=== PATIENT | male | born 1975 | race Caucasian/White ===

== ENCOUNTER → 2018-07-12 15:54 | Outpatient (CLI) | payer BC, SELFPAY ==
[2018-07-12 16:18] LABS: Blood Urea Nitrogen 13 mg/dL (7-18); Estimated Glomerular Filt Rate 107 ml/min (>60); GFR (African American) 129 ML/MIN (>60)
--- NOTE | 2018-07-12 16:32 | CT_ITS ---
CT abdomen pelvis w con CLINICAL INDICATION: ITS.REASON: RIGHT GROIN PAIN ORDERING PHYSICIAN: Kelton Christy MD PATIENT AGE: 42 years COMPARISON: None TECHNIQUE: Axial images obtained with sagittal and coronal reformats. All CT scans at the facility use one or more dose reduction, viz: automated exposure control, ma/kV adjustment per patient size (including targeted exams where dose is matched to indication, i.e. head), or iterative reconstruction technique. PROCEDURE: Oral Contrast: None IV Contrast: 75 mL's Optiray 350. FINDINGS: No acute finding in the lower chest. The liver, gallbladder, spleen, adrenal glands, and pancreas have an unremarkable CT appearance. No renal or ureteral calculi. No hydronephrosis. No intestinal obstruction or free air. No abdominal wall hernias are evident. No evidence of inguinal hernia. There is mild hyperdensity of the appendix suggestion of some minimal enhancement of the mid aspect of the appendix with minimal prominence of the mid aspect of the appendix at 8 mm. No central appendiceal fluid or periappendiceal stranding of the fat is evident. This is of questionable clinical significance. This may merely be due to partial volume averaging artifact from the appendix making a right ankle turn . The findings are not typical for appendicitis. Please correlate with clinical findings. No pelvic mass abnormal fluid collection or focal inflammatory change of the pelvis. No acute bony findings. There is some mild atherosclerotic calcification of the aortoiliac vessels. IMPRESSION: 1. No evidence of abdominal wall hernia or inguinal hernia. 2. Minimal prominence of the mid aspect of the appendix was some questionable enhancement. The proximal and distal aspect of the appendix has an unremarkable appearance. These findings are not typical for appendicitis. Please correlate with clinical parameters and consider follow-up imaging if clinically warranted
--- NOTE | 2018-07-12 17:19 | US_ITS ---
US scrotum HISTORY: ITS.REASON: RIGHT GROIN PAIN ORDERING PHYSICIAN: Kelton Christy MD PATIENT AGE: 42 years Comparison: None FINDINGS: The right testicle is 4.4 x 2.2 cm. Blood flow is present. No mass apparent. No evidence of hydrocele or hematocele or varicocele. The left testicle measures 4.2 x 2.2 cm. There is homogeneous echogenicity. No mass evident. There is a small left epididymal cyst at 1 cm. Blood flow is present. No hydrocele or varicocele. IMPRESSION: Small left epididymal cyst otherwise negative testicular ultrasound
== END ==
PROVIDERS: Visit Provider Internal Medicine Adolescent Medicine
DX: R10.31 Right lower quadrant pain (principal)
CPT/HCPCS: 36415; 74177; 76870; 82565; 84520; Q9967

== ENCOUNTER 2022-05-26 15:52 | Emergency (ER) | payer BC, SELFPAY ==
[2022-05-26] VITALS (7 sets, daily range): BP systolic 125–143; BP diastolic 79–89; PULSE 60–73; RESP 17–22; TEMP 36.7–36.9; O2SAT 96–100; BMI 29.0
--- NOTE | 2022-05-26 15:52 | ECG_ITS ---
APPROVED REPORT Exam: Resting ECG HR:65 bpm ECG Measurements Heart Rate 65 AXES GA 147 P 56 QRSd 93 QRS 35 QT 361 T 18 QTc 373 Conclusion SINUS RHYTHM NORMAL ECG UNCONFIRMED REPORT Electronically signed by : Isaiah Holcomb MD 05/27/2022 20:57:08
--- NOTE | 2022-05-26 15:56 | XR_ITS ---
FINAL REPORT CLINICAL HISTORY: CHEST PAIN FINDINGS: A single portable view of the chest was obtained. The heart size and pulmonary vascularity are within normal limits. The mediastinum is within normal limits. No acute pulmonary abnormality is identified. The bony thorax is intact. IMPRESSION: No active cardiopulmonary disease. Reviewed, Interpreted and Dictated by Moiz Pearson III, MD Transcribed by Germania Potts Authenticated and [facility]
[2022-05-26 16:19] LABS: Chloride 104 mmol/L (98-107); Potassium 3.6 mmoL/L (3.5-5.1); Sodium 141 mmol/L (136-145)
[2022-05-26 16:22] LABS: Blood Urea Nitrogen 23 mg/dl (9-20); Creatinine Clearance Estimated 146 mL/min (50-200); Estimated Glomerular Filt Rate 91 ml/min (>60); GFR (African American) 110 ML/MIN (>60)
[2022-05-26 16:23] LABS: Anion Gap 8.6 mEq/L (5-15); Calcium 8.7 mg/dl (8.4-10.2); Carbon Dioxide 32 mmol/L (22.0-30.0); Glucose 86 mg/dl (74-100)
[2022-05-26 16:43] LABS: Troponin I < 0.01 ng/ml (0.00-0.034)
[2022-05-26 16:56] LABS: Basophils # 0.1 K/mm3 (0-0.2); Basophils % 1.1 % (0.1-2.0); Eosinophils # 0.2 K/mm3 (0.0-0.4); Eosinophils % 2.3 % (0.1-12.0); Hemoglobin 13.4 g/dL (14.1-18.0); Lymphocytes # 3.5 K/mm3 (0.7-4.5); Lymphocytes % 38.2 % (10-50); Mean Corpuscular HGB Conc 31.9 g/dL (31.8-35.4); Mean Corpuscular Volume 93.9 fl (80-94); Mean Platelet Volume 8.1 fl (7.4-10.4); Monocytes # 0.4 K/mm3 (0.1-1.0); Monocytes % 4.5 % (1.7-9.3); Neutrophils # 4.9 K/mm3 (1.8-7.8); Neutrophils % 53.9 % (37.0-80.0); Platelet Count 355 K/mm3 (142-424); Red Blood Count 4.47 M/mm3 (4.60-6.20); White Blood Count 9.1 K/mm3 (4.8-10.8)
--- NOTE | 2022-05-26 17:37 | PC.NURSE ---
PT TO BR
--- NOTE | 2022-05-26 18:04 | HMH.EDGENADL ---
Discharge Plan Disposition Patient Disposition: Home, Self-Care Condition: Good Activity Restrictions/Add. Instructions Additional Instructions/Restrictions: Ibuprofen for pain. Additional instructions for CHEST PAIN: Return immediately if worsening chest pain, vomiting, shortness of breath, fever, coughing of blood. You are being provided with a list of physicians available for follow-up of your condition. Please call a physician on this list to arrange a follow-up appointment as soon as possible. Clinical Impressions Clinical Impression: Atypical chest pain Instructions Patient Instructions: DI for Atypical Chest Pain Discharge ED Provider: Lalit Madera General Adult HPI General Chief complaint: Shortness of Breath/Dyspnea Stated complaint: CHEST PAIN Time Seen by Provider: 05/26/22 18:03 Mode of Arrival: Ambulatory Limitations: No Limitations Description of Symptoms (Recalled from ER Triage Doc. by RN): PT REPORTS RIGHT SIDED CHEST PAIN FOR 3 WEEKS THAT RESOLVED A FEW DAYS AGO. REPORTS LEFT SIDED CHEST PAIN, UNDER MYHEART PT STATES IT FEELS LIKE A MUSCLE DENIES SHORTNESS OF BREATH, NO N/V History of Present Illness HPI narrative: Patient states that 3 weeks ago he developed pain on the right side of his chest that went from the front all the way around the back. He had remained constant for 3 weeks then went away 3 days ago. Today he woke up with a soreness in his left anterior chest that has persisted all day. Pain worsens with coughing and sneezing. No injury recalled. Denies shortness of breath, nausea, vomiting, diaphoresis. He does not have any known heart disease. He is a former smoker. He is not on any medications except for Suboxone. No recent hospitalizations, surgeries, travel. No leg pain or swelling. No hemoptysis. He has had a recent mild URI Related Data Allergies Allergy/AdvReac Type Severity Reaction Status Date / Time No Known Allergies Allergy Verified 05/26/22 15:56 [facility] Disclaimer: The information contained in this section may have been updated after the patient was seen, as this information can be updated by other users. Social History Smoking Status: Never smoker ROS Obtained: Yes Systems reviewed as appropriate & no additional complaints except as documented Constitutional Constitutional: Denies fever(s), Denies headache(s) and Denies weakness ENT Ears, Nose, Mouth, and Throat: Denies headache(s), Denies nasal discharge and Denies sore throat Cardiovascular Cardiovascular: Reports chest pain, Denies diaphoresis, Denies edema, Denies leg edema and Denies radiating jaw, neck or arm pain Respiratory Respiratory: Denies shortness of breath, Denies cough, Reports pain with cough and Denies pain with breathing Gastrointestinal Gastrointestingal: Denies abdominal pain, constipation, diarrhea or vomiting Genitourinary Male Genitourinary: Denies difficulty urinating and Denies flank pain Musculoskeletal Musculoskeletal: Denies numbness Neurologic Neurologic: Denies headache(s), Denies numbness and Denies weakness Physical Exam General General appearance: alert and in no apparent distress Head Head exam: atraumatic and normocephalic Eye Eye exam: Present normal appearance and EOMI ENT ENT exam: Present mucous membranes moist Neck Neck exam: Present normal inspection and trachea midline Chest Chest inspection: Present normal inspection and symmetric chest wall rise Respiratory Respiratory exam: Present normal lung sounds bilaterally; Absent respiratory distress Cardiovascular Cardiovascular exam: Present regular rate, normal rhythm and normal heart sounds Abdominal Exam Abdominal exam: Present soft and normal bowel sounds; Absent distention, tenderness, guarding, rebound or rigidity Extremities Exam Extremities exam: Present normal inspection Neurological Exam Neurological exam: Present alert and oriented X3 Psychiatric Psychiatric exam: Present normal
--- NOTE | 2022-05-26 18:20 | PC.NURSE ---
DR LAMB AT BEDSIDE
--- NOTE | 2022-05-26 18:41 | PC.NURSE ---
REPEAT TROP DRAWN AT THIS TIME
[2022-05-26 18:43] LABS: D-Dimer 0.76 ug/mL (0.0-0.5)
--- NOTE | 2022-05-26 18:51 | CT_ITS ---
PROCEDURE INFORMATION: Exam: CTA Chest With Contrast Exam date and time: 05/26/2022 7:13 PM Age: 46 years old Clinical indication: Dyspnea; Additional info: Cp, elev d-dimer, R/O pe TECHNIQUE: Imaging protocol: Computed tomographic angiography of the chest with contrast. 3D rendering (Not supervised by radiologist): MIP and/or 3D reconstructed images were created by the technologist. Radiation optimization: All CT scans at this facility use at least one of these dose optimization techniques: automated exposure control; mA and/or kV adjustment per patient size (includes targeted exams where dose is matched to clinical indication); or iterative reconstruction. Contrast material: ISOVUE 370; Contrast volume: 70 ml; Contrast route: INTRAVENOUS (IV); Other protocol: This patient has received 0 known CTs and 0 known cardiac nuclear medicine studies in the 12 months prior to the current study. COMPARISON: CR XR CHEST PORTABLE 05/26/2022 4:23 PM FINDINGS: Pulmonary arteries: Normal. No pulmonary emboli. Aorta: Unremarkable. No aortic aneurysm. No aortic dissection. Lungs: There is a small right lower lobe calcified granuloma. Lungs are otherwise clear. Pleural spaces: Unremarkable. No pneumothorax. No pleural effusion. Heart: Unremarkable. No cardiomegaly. No pericardial effusion. Lymph nodes: Small calcified lymph nodes are noted in the right hilum. No intrathoracic lymphadenopathy. Bones/joints: Mild degenerative changes are noted in the thoracic spine. Soft tissues: Unremarkable. IMPRESSION: No evidence of pulmonary embolus or other acute pathology in the chest.
--- NOTE | 2022-05-26 19:12 | PC.NURSE ---
PT TO CT AT THIS TIME
[2022-05-26 19:30] LABS: Troponin I < 0.01 ng/ml (0.00-0.034)
== END 2022-05-26 19:30 | disposition home or self-care (01) ==
PROVIDERS: Emergency Provider Emergency Medicine
DX: R07.89 Other chest pain (principal); Z87.891 Personal history of nicotine dependence
CPT/HCPCS: 71045; 71275; 80048; 84484; 85025; 85378; 93005; 99285; Q9967

== ENCOUNTER 2022-11-15 13:25 | Emergency (ER) | payer BC, SELFPAY ==
[2022-11-15 13:28] VITALS: BP 137/84; PULSE 74; RESP 16; TEMP 36.7; O2SAT 98; BMI 29.0
[2022-11-15 14:01] VITALS: BP 114/79; PULSE 66; O2SAT 96
--- NOTE | 2022-11-15 14:21 | HMH.EDGENADL ---
Discharge Plan Disposition Patient Disposition: Home, Self-Care Condition: Good Prescriptions Prescriptions: New methocarbamol 750 mg tablet 750 mg PO Q8H PRN (Reason: pain) Qty: 20 0RF naproxen 500 mg tablet 500 mg PO Q12H PRN (Reason: pain) Qty: 20 0RF Referrals Follow up/Referrals: Provider,Referral, [Primary Care Provider] - See instructions Activity Restrictions/Add. Instructions Additional Instructions/Restrictions: You were evaluated in the emergency department today for low back pain. Please olive picker your prescriptions to the pharmacy and take them as needed for severe pain. You may also take Tylenol. Return to the emergency department for any new or worsening symptoms. Clinical Impressions Clinical Impression: Low back strain Qualifiers: Encounter type: initial encounter Qualified Code(s): S39.012A - Strain of muscle, fascia and tendon of lower back, initial encounter Stand Alone Forms Stand Alone Forms: Work/School Release Instructions Patient Instructions: DI for Low Back Pain Discharge ED Provider: Mckenna Wiley General Adult HPI General Chief complaint: PAIN Stated complaint: AO7/21, back pain Time Seen by Provider: 11/15/22 13:31 Mode of Arrival: Ambulatory Source of Information: Patient Limitations: No Limitations Description of Symptoms (Recalled from ER Triage Doc. by RN): pt reports monday while at work he bent over to get a piece of machinary and felt something pop in his left lower back area. pt reports being unable to work the past two days. pt is currently on suboxone and does not wish to have any hard core narcotics. History of Present Illness HPI narrative: This patient is a 47-year-old male who reports history of opiate dependence now on Suboxone presented to the emergency department for evaluation with concern for right-sided low back pain. He reports s that he turned and reached over to grab something 2 days ago when he felt a pull in his right-sided low back. He now feels pain with movement and anytime he tries to lie down. He has tried Aleve at home with minimal improvement. Given this, he has missed work. He denies any numbness, tingling, saddle anesthesia, or other concerns. He is otherwise been well. Related Data Previous Rx's Medication Instructions Recorded methocarbamol 750 mg tablet 750 mg PO Q8H PRN pain #20 tabs 07/25/23 naproxen 500 mg tablet 500 mg PO Q12H PRN pain #20 tabs 11/15/22 Allergies Allergy/AdvReac Type Severity Reaction Status Date / Time No Known Allergies Allergy Verified 05/26/22 15:56 [facility] Disclaimer: The information contained in this section may have been updated after the patient was seen, as this information can be updated by other users. Social History Smoking Status: Current every day smoker alcohol intake: never current occupational status: employed Travel in the last 8 weeks: None ROS Obtained: Yes All systems reviewed & no additional complaints except as documented 14 point review of systems obtained and negative except as mentioned in HPI. Physical Exam General General appearance: alert and in no apparent distress Head Head exam: atraumatic and normocephalic Eye Eye exam: Present normal appearance, PERRL and EOMI ENT ENT exam: Present normal exam and normal oropharynx Neck Neck exam: Present normal inspection, full ROM and trachea midline Chest Chest inspection: Present normal inspection and symmetric chest wall rise; Absent tenderness Respiratory Respiratory exam: Present normal lung sounds bilaterally; Absent respiratory distress or wheezes Cardiovascular Cardiovascular exam: Present regular rate and normal rhythm Abdominal Exam Abdominal exam: Present soft; Absent distention, tenderness or guarding Extremities Exam Extremities exam: Present normal inspection and full ROM; Absent tenderness Back Exam Back exam: Present paraspinal ten
[2022-11-15 14:30] VITALS: BP 122/70; PULSE 79; O2SAT 97
[2022-11-15 14:39] VITALS: BP 122/70; PULSE 62; RESP 16; TEMP 36.7; O2SAT 98
== END 2022-11-15 14:39 | disposition home or self-care (01) ==
PROVIDERS: Emergency Provider Emergency Medicine
DX: S39.012A Strain of muscle, fascia and tendon of lower back, initial encounter (principal); X50.1XXA Overexertion from prolonged static or awkward postures, initial encounter; F17.200 Nicotine dependence, unspecified, uncomplicated
CPT/HCPCS: 96372; 99283

== ENCOUNTER 2024-04-15 10:00 | Emergency (ER) | payer BC, SELFPAY ==
[2024-04-15 10:01] VITALS: BP 138/84; PULSE 82; RESP 14; TEMP 36.7; O2SAT 98; BMI 33.0
--- NOTE | 2024-04-15 10:09 | ECG_ITS ---
APPROVED REPORT Exam: Resting ECG HR:73 bpm ECG Measurements Heart Rate 73 AXES MD 147 P 42 QRSd 89 QRS 26 QT 345 T 7 QTc 370 Conclusion SINUS RHYTHM NORMAL ECG UNCONFIRMED REPORT Electronically signed by : JOSHUA MRASHALL, 04/16/2024 07:07:26
--- NOTE | 2024-04-15 10:15 | XR_ITS ---
FINAL REPORT CLINICAL HISTORY: chest pain COMPARISON: 05/26/2022 FINDINGS: No acute pulmonary density is evident. There is no evidence of effusion or other pleural disease. The mediastinum has a normal appearance. The cardiac silhouette is unremarkable. IMPRESSION: Unremarkable chest exam. Reviewed, Interpreted and Dictated by Grayson Smith MD Transcribed by Leah Portillo Authenticated and [facility]
[2024-04-15 10:30] VITALS: BP 119/71; PULSE 74; RESP 19; O2SAT 96
[2024-04-15 10:40] LABS: Albumin Level 4.3 g/dl (3.5-5.0); Chloride 106 mmol/L (98-107); Sodium 134 mmol/L (136-145)
[2024-04-15 10:43] LABS: Alanine Aminotransferase 40 U/L (12-78); Albumin/Globulin Ratio 1.4 (1.1-1.8); Alkaline Phosphatase 77 U/L (38-126); Aspartate Amino Transferase 44 U/L (17-59); Bilirubin,Total 0.5 mg/dl (0.2-1.3); Blood Urea Nitrogen 21 mg/dl (9-20); Carbon Dioxide 26 mmol/L (22.0-30.0); Creatinine Clearance Estimated 122 mL/min (50-200); Estimated Glomerular Filt Rate 65 ml/min (>60); GFR (African American) 79 ML/MIN (>60); Total Protein,Serum 7.3 g/dl (6.3-8.2)
[2024-04-15 10:44] LABS: Calcium 8.8 mg/dl (8.4-10.2); Glucose 98 mg/dl (74-100)
[2024-04-15 10:45] LABS: Hematocrit 45.1 % (42.0-52.0); Hemoglobin 15.5 g/dL (14.1-18.0); White Blood Count 7.2 K/mm3 (4.8-10.8)
[2024-04-15 10:46] LABS: Basophils # 0.1 K/mm3 (0-0.2); Basophils % 0.7 % (0.1-2.0); Eosinophils # 0.2 K/mm3 (0.0-0.4); Eosinophils % 2.5 % (0.1-12.0); Lymphocytes # 2.3 K/mm3 (0.7-4.5); Lymphocytes % 31.1 % (10-50); Mean Corpuscular HGB Conc 34.4 g/dL (31.8-35.4); Mean Corpuscular Hemoglobin 31.6 pg (27.0-31.2); Mean Platelet Volume 9.9 fl (7.4-10.4); Monocytes # 0.5 K/mm3 (0.1-1.0); Monocytes % 7.3 % (1.7-9.3); Neutrophils # 4.2 K/mm3 (1.8-7.8); Neutrophils % 58.1 % (37.0-80.0); Platelet Count 289 K/mm3 (142-424); Red Cell Distribution Width 12.2 % (11.5-17.5)
--- NOTE | 2024-04-15 10:55 | PC.NURSE ---
er at bedside
--- NOTE | 2024-04-15 11:04 | PC.NURSE ---
called lab to check on trop. they stated it would be 17 minutes. er aware
[2024-04-15 11:34] LABS: Troponin I < 0.01 ng/ml (0.00-0.034)
--- NOTE | 2024-04-15 11:39 | HMH.EDCP ---
Discharge Plan Disposition Patient Disposition: Left Against Medical Advice Condition: Good Prescriptions Prescriptions: No Action Vitamin D (with calcium) 77-400 mg-unit Tablet 1 tab PO DAILY B12 5,000-100 mcg Lozenge 5,000 shawna SUBLINGUAL DAILY Referrals Follow up/Referrals: Provider,MD Katelynn [Primary Care Provider] - See instructions Kamran Osorio MD [Staff Physician] - See instructions (Occasional chest pain with radiation to the left arm, brother had OH at 51) Activity Restrictions/Add. Instructions Additional Instructions/Restrictions: You are leaving the ER AGAINST MEDICAL ADVICE. Please follow-up with your primary care doctor as well as with cardiology. Return to the ER at any time for futher evaluation. Clinical Impressions Clinical Impression: Chest pain Print Language Print Language: Tajik Discharge ED Provider: Megan Feng General Chief Complaint: Chest Pain Stated Complaint: cp Time Seen by Provider: 04/15/24 10:51 Mode of Arrival: Ambulatory Source of Information: Patient Limitations: No Limitations Description of Symptoms (Recalled from ER Triage Doc. by RN): pt presents to the er for L upper chest pain that has been going on for about a week intermittently, states today the pain went to his L arm, explains pain in arm as sore and numb at times, rates pain 3/10, states pain in chest is like a pinching feeling that comes and goes, denies any cardiac hx in the past History of Present Illness HPI narrative: 48-year-old male presents to the ER for complaints of intermittent left upper chest pain that has felt like a pinching sensation. He reports the pain is intermittent, comes and goes, seems to be worse when he is working. He states today for the first time the pain radiated to the left arm, stated it felt like a tightness and like his fingers were swollen. He denies any tingling or actual numbness. He rated the pain 3 out of 10 and stated it spontaneously resolved. Pain started approximately 30 minutes prior to arrival. He states he has had no other symptoms today, he is not having chest pain or arm pain at this time. He states his brother had an OH at age 51, but patient has no known chronic medical conditions, no daily medications, no known drug allergies. He states he has low concern for anything going on however his coworkers encouraged him to come to the ER. 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 He denies headache, weakness, nausea, vomiting, diarrhea, or other associated symptoms Related Data Home Medications ?Medication ?Instructions ?Recorded ?Confirmed calcium phosphate,dibasic 77 1 tab PO DAILY 04/15/24 04/15/24 mg-vitamin D3 400 unit tablet cyanocobalamin (B12)-cobamamide 5,000 shawna sublingual DAILY 04/15/24 04/15/24 5,000 mcg-100 mcg sublingual lozenge (B12) Allergies Allergy/AdvReac Type Severity Reaction Status Date / Time No Known Allergies Allergy Verified 04/15/24 10:15 [facility] Disclaimer: The information contained in this section may have been updated after the patient was seen, as this information can be updated by other users. Social History (Updated 11/15/22 @ 16:09 by Mckenna Wiley DO) Smoking Status: Never smoker alcohol intake: never current occupational status: employed Travel in the last 8 weeks: None Have you lived/traveled outside US in past 30 days?: No Contact w/someone who lives/traveled outside US past 30 days?: No Exposure to someone with infectious disease in past 14 days?: No Do you have a fever (greater than 100.4 F or 38 C)?: No Have you tested positive for COVID-19: No Exposed to someone with COVID-19 in past 14 days?: No Do you have a sore throat?: No Do you have a cough?: No Do you have any weakness?: No Do you have any diarrhea?: No Are you experiencing any unusual bleeding?: No Do you have any muscle aches/pain?: No Do you have any abdominal pain?: No Are you experiencing loss of taste or smell?: No ROS Obtained: Yes Systems reviewed as appropriate & no additional complaints except as documented Per HPI Physical Exam General General appearance: alert and in no apparent distress Head Head exam: atraumatic and normocephalic Eye Eye exam: Present PERRL and EOMI ENT ENT exam: Present mucous membranes moist Neck Neck exam: Present normal inspection and full ROM Chest Chest inspection: Present symmetric chest wall rise; Absent tenderness Respiratory Respiratory exam: Present normal lung sounds bilaterally; Absent respiratory distress, wheezes or stridor Cardiovascular Cardiovascular exam: Present regular rate and normal rhythm Abdominal Exam Abdominal exam: Present soft; Absent distention, tenderness, guarding or rebound Extremities Exam Extremities exam: Present full ROM Neurological Exam Neurological exam: Present alert and oriented X3; Absent motor sensory deficit Psychiatric Psychiatric exam: Present normal affect and normal mood Skin Skin exam: Present warm and dry HEART Score HEART Score HEART Score assessment performed?: Yes History (anamnesis): Slightly suspicious ECG: Normal Age: 45-65 years Risk factors: 1-2 risk factors Troponin: </= normal limit HEART Score: 2 Critical Care Critical Care Time Critical Care Time: No Medical Decision Making Frank Inquiry Pt receiving controlled substance: No Vital Signs Vital Signs: 04/15/24 10:01 04/15/24 10:30 04/15/24 11:40 Temperature 98.0 F 98.0 F Temperature Source Oral Oral Pulse Rate 74 80 Pulse Rate [Left Radial] 82 Respiratory Rate 14 19 18 Blood Pressure 119/71 122/83 Blood Pressure [Right Arm] 138/84 Blood Pressure Mean [Right Arm] 102 Blood Pressure Source Automatic Cuff Blood Pressure Source [Right Arm] Automatic Cuff Blood Pressure Position Sitting Blood Pressure Position [Right Arm] Sitting 02 Sat by Pulse Oximetry 98 96 Oxygen Delivery Method Room Air Room Air Room Air Lab Data Labs: Lab Results 04/15/24 10:02: WBC 7.2, RBC 4.90, Hgb 15.5, Hct 45.1, MCV 92.0, MCH 31.6 H, MCHC 34.4, RDW 12.2, Plt Count 289, MPV 9.9, Neut % (Auto) 58.1, Lymph % (Auto) 31.1, [place] % (Auto) 7.3, Eos % (Auto) 2.5, Baso % (Auto) 0.7, Neut # (Auto) 4.2, Lymph # (Auto) 2.3, [place] # (Auto) 0.5, Eos # (Auto) 0.2, Baso # (Auto) 0.1, Sodium 134 L, Potassium 4.0, Chloride 106, Carbon Dioxide 26, Anion Gap 6.0, BUN 21 H, Creatinine 1.20, Estimated Creat Clear 122, Estimated GFR 65, Est GFR ( Amer) 79, Glucose 98, Calcium 8.8, Total Bilirubin 0.5, AST 44, ALT 40, Alkaline Phosphatase 77, Troponin I < 0.01, Total Protein 7.3, Albumin 4.3, Globulin 3.0, Albumin/Globulin Ratio 1.4 04/15/24 10:02 04/15/24 10:02 Response Orders (Tests/Meds): ORDERS Category Date Time Status XR chest 2V Stat Exams 04/15/24 10:15 Completed Complete Blood Count Auto Diff Stat Lab 04/15/24 10:02 Completed Comprehensive Metabolic Panel Stat Lab 04/15/24 10:02 Completed Troponin I Stat Lab 04/15/24 10:02 Completed MDM Narrative Medical Decision Narrative: In summary, this 48-year-old presents to the emergency department today with chest pain, arm pain. On initial evaluation patient is hemodynamically stable, afebrile, asymptomatic, benign cardiopulmonary exam, benign exam overall. Differential diagnosis includes but is not limited to ACS, I considered muscle spasm, esophageal spasm, I considered cervical radiculopathy but patient has no pain with rotation of his neck, no tenderness, no paresthesias, no reproducible discomfort. Based on these concerns, I ordered serum labs, cardiac workup. ECG personally interpreted demonstrates normal sinus rhythm, rate 73, normal axis, normal HI and QTc, no. Labs personally reviewed demonstrate no leukocytosis or anemia, normal platelets, CMP nonactionable, patient was encouraged to drink more fluids since his BUN was slightly elevated, initial troponin undetectably low less than 0.01 XR personally interpreted demonstrates no acute intrathoracic abnormality, see radiology read for final rotation. Patient requested to leave AGAINST MEDICAL ADVICE. I recommended that he stay for serial troponins to rule out evolving OH. I explained the risks of leaving including missing a heart attack and having life altering disability or dying. He understands these risks. Patient was able to explain back to me their condition and the risks of leaving up to and including wosening of condition, severe life altering disability, or . Patient was able to provide reason for their decision and clearly express their decision. 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 Patient has capacity to make this decision and left AGAINST MEDICAL ADVICE. Prior to him leaving, I provided referral to cardiology for further evaluation because I am concerned about his family history. He was stable and asymptomatic when he left the ER
[2024-04-15 11:40] VITALS: BP 122/83; PULSE 80; RESP 18; TEMP 36.7; O2SAT 98
== END 2024-04-15 11:41 | disposition left against medical advice (07) ==
PROVIDERS: Emergency Provider Emergency Medicine
DX: R07.9 Chest pain, unspecified (principal); M79.602 Pain in left arm
CPT/HCPCS: 71046; 80053; 84484; 85025; 93005; 99284

== ENCOUNTER 2025-01-01 16:25 | Outpatient (CLI) | payer OTHER, SELFPAY ==
[2025-01-01 17:50] LABS: Hepatitis C Ab Qual. W/ RFX NEGATIVE (Negative)
[2025-01-02 09:24] LABS: RPR W/RFX Titers Nonreactive (Nonreactive)
--- OUTSIDE RECORDS SUMMARY | 2025-01-02 16:26 | XMS_ITS | Clinical Summary ---
Author Organization [employer] [facility] are -Transitions Address [address] [place] [phone] Phone Care Team Providers Care Travel Rn Name Role Phone Zaida Frazier APRN Primary Care Physic elma Conditions or Problems No information available. Medications No information available. Medications Administered No information available. Allergies, Adverse Reactions, Alerts No information available. Results No information available. Plan of Care No information available. Procedures No information available. Vital Signs No information available. Immunizations No information available. Advance Directives No information available.
[2025-01-03 09:21] LABS: Hepatitis B Surface Antigen Negative (Negative)
== END 2025-01-01 23:59 | disposition home or self-care (01) ==
LOC: LAB.DROPOF 01-02 16:25
PROVIDERS: PCP Family Medicine; Visit Provider Student in an Organized Health Care Education/Training Program
DX: Z11.3 Encounter for screening for infections with a predominantly sexual mode of transmission (principal); Z20.2 Contact with and (suspected) exposure to infections with a predominantly sexual mode of transmission
CPT/HCPCS: 86592; 86803; 87389; 87491; 87529; 87563; 87591; 87661